=== PATIENT | male | born 1975 | race Asian ===

== ENCOUNTER 2020-02-16 19:27 | Emergency (ER) | payer BC, OTHER ==
[~2020-02-16] VITALS: Ht 172.7 cm; Wt 88.0 kg
[2020-02-16 19:38] VITALS: Ht 172.7 cm; Wt 88.0 kg
[2020-02-16 22:54] VITALS: BP 102/68
== END 2020-02-16 22:55 | disposition home or self-care (01) ==
LOC: ED 19:27
DX: S42.302A Unspecified fracture of shaft of humerus, left arm, initial encounter for closed fracture (principal); E78.00 Pure hypercholesterolemia, unspecified; W18.30XA Fall on same level, unspecified, initial encounter; Y93.89 Activity, other specified; Y92.89 Other specified places as the place of occurrence of the external cause; Y99.8 Other external cause status
CPT/HCPCS: J1885; Q0092